=== PATIENT | male | born 1965 | race Caucasian/White ===

== ENCOUNTER → 2020-09-29 | Outpatient (CLI) | payer BC, OTHER ==
[~2020-09-29] MED LIST: BACTROBAN OINT22 GM EXT
== END ==
LOC: KOH-I 08:59
DX: R51.9 Headache, unspecified (principal)
CPT/HCPCS: 70486

== ENCOUNTER → 2021-05-23 | Outpatient (CLI) | payer BC | LOC: HEART CORB 13:11 | DX: R07.2 Precordial pain (principal); R06.02 Shortness of breath; I10 Essential (primary) hypertension; I08.1 Rheumatic disorders of both mitral and tricuspid valves | CPT/HCPCS: 93306 ==

== ENCOUNTER 2021-08-07 11:08 | Emergency (ER) | payer BC ==
[2021-08-07 12:53] LABS: HEMOGLOBIN 15.2 gm/dl (14.0-17.5); RED BLOOD COUNT 5.41 M/UL (4.20-5.50); WHITE BLOOD COUNT 7.1 K/UL (4.5-11.0)
[2021-08-07 13:04] LABS: BUN/CREATININE RATIO 10 (0-10)
[2021-08-07] MEDS ORDERED: MOBIC15 MG PO (16:47)
== END 2021-08-07 16:57 | disposition home or self-care (01) ==
LOC: ER1 11:08
PROVIDERS: Physician Assistant
DX: N39.0 Urinary tract infection, site not specified (principal); N50.812 Left testicular pain; I10 Essential (primary) hypertension; N43.3 Hydrocele, unspecified; Z87.442 Personal history of urinary calculi; Z88.0 Allergy status to penicillin
CPT/HCPCS: 76870; 80053; 81001; 85025; 99284; Q9967